=== PATIENT | male | born 1965 | race Caucasian/White ===

== ENCOUNTER → 2021-04-03 10:57 | Outpatient (CLI) | payer OTHER, SELFPAY ==
--- NOTE | ~2021-04-03 | MR_ITS ---
EXAMINATION: MR knee RT wo con DATE: 04/03/2021 11:49 INDICATION: Right knee pain TECHNIQUE: Magnetic resonance imaging (MRI) of the right knee was performed without intravenous contr ast. Sequences included coronal PD-weighted FSE, coronal PD-weighted FS FSE, sagittal T2-weighted FS E, sagittal PD-weighted FS FSE and axial PD weighted fat saturated FSE. COMPARISON: None. FINDINGS: Medial compartment: Complex tear extending from the free edge to the periphery of the meniscus at the junction of the pos terior body and posterior horn. Chondral ulceration and deep fissuring with prominent underlying suba rticular cystic change at the posterior medial aspect of the medial tibial plateau. Additional deep c hondral fissuring without degenerative subchondral changes slightly into the epicenter of the medial tibial plateau. Moderate-sized region of deep chondral ulceration involving greater than 50% the cart ilage thickness but without degenerative subchondral changes at the central weightbearing medial femo ral condyle. Small marginal osteophytes are present. Lateral compartment: Complex tear extending from the anterior to the posterior horn of the lateral meniscus including long itudinal vertical tear plane at the posterior horn, longitudinal horizontal tear plane at the anterio r horn and body and which converge along with oblique radial tear plane at the junction of the roundsman ior horn and body. Extensive full/near full-thickness cartilage loss along a significant portion of t he anterior, central and medial aspect of the medial tibial plateau with associated with underlying s ubarticular increased signal and involving the central weightbearing medial femoral condyle with asso ciated cortical irregularity and mild scattered subarticular increased signal. Moderate size marginal osteophytes are present. Patellofemoral compartment: Chondral ulceration involving greater than 50% the cartilage thickness at the central and inferomedia l aspect of the lateral trochlea. Deep horizontal chondral fissure extending across the cephalad aspe ct of the trochlear groove into the superolateral aspect of the medial trochlea. Moderate-sized maría nal osteophytes are present. Ligaments and tendons: Tear which appears complete anterior cruciate ligament. At least partial tear of the posterior crucia te ligament. The medial collateral ligament and fibular collateral ligament complex are normal. The e xtensor mechanism is normal. The visualized medial and lateral hamstring tendons as well as the iliot ibial band are normal. Fluid: Minimal right knee joint effusion at the lateral gutter of the suprapatellar pouch. 8 mm and 4 mm loo se osteochondral bodies in the posterior recess posterior to the posterior root of the medial meniscu s. Osseous/other: Bone alignment is normal. No fracture or pathologic marrow replacing process. IMPRESSION: 1. Anterior cruciate ligament tear and at least partial tear of the posterior cruciate ligament. 2. Complex medial and lateral meniscal tears. 3. 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 Reviewed, dictated and finalized at location A. ST[employer] SPE[employer]ATOR IMPRESSION: 1. Anterior cruciate ligament tear and at least partial tear of the posterior c ruciate ligament. 2. Complex medial and lateral meniscal tears. 3. 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
== END ==
PROVIDERS: Visit Provider Orthopaedic Surgery
DX: S83.231A Complex tear of medial meniscus, current injury, right knee, initial encounter (principal); S83.271A Complex tear of lateral meniscus, current injury, right knee, initial encounter; X58.XXXA Exposure to other specified factors, initial encounter; S83.511A Sprain of anterior cruciate ligament of right knee, initial encounter; M17.11 Unilateral primary osteoarthritis, right knee
CPT/HCPCS: 73721